=== PATIENT | female | born 1955 | race Two or more races ===

== ENCOUNTER 2020-10-21 00:47 | Emergency (ER) | payer MEDICARE, MEDICAID ==
[~2020-10-21] VITALS: Ht 165.1 cm; Wt 74.1 kg
[2020-10-21 00:50] VITALS: BP 111/79
[2020-10-21] MEDS ORDERED: DIAZEPAM 5 MG TABLET ONE ×2 (01:21→02:25)
[2020-10-21 01:25] LABS: BASOPHILS % (AUTO) 1 % (0-1); EOSINOPHILS % (AUTO) 3 % (1-7); LYMPHOCYTES % (AUTO) 37 % (22-44); MEAN CORPUSCULAR HEMOGLOBIN 32.8 pg (27.0-34.8); MEAN CORPUSCULAR HGB CONC 34.2 g/dL (32.4-35.8); MEAN PLATELET VOLUME 9.1 fL (7.4-10.4); MONOCYTES % (AUTO) 8 % (2-9); NEUTROPHILS % (AUTO) 51 % (42-75); PLATELET COUNT 285 x10^3/uL (130-400); RED BLOOD COUNT 3.88 x10^6/uL (3.82-5.3); RED CELL DISTRIBUTION WIDTH 13.1 % (9.6-15.2)
[2020-10-21 01:28] LABS: MD NO
[2020-10-21] MEDS ORDERED: DIAZEPAM 5 MG TABLET PO ONE ×2 (01:30→02:30)
[2020-10-21 01:31] LABS: ALBUMIN 3.8 g/dL (3.4-5.0); ANION GAP 8 mmol/L (5-15); CHLORIDE 111 mmol/L (98-107)
[2020-10-21 01:35] LABS: TROPONIN I < 0.015 ng/mL (0.000-0.045)
--- NOTE | 2020-10-21 01:38 | NUR ---
pt resting in bed with family at pt side, pt has unlabored equal breaths. pt a/o x4. pt medicated per nov. pt on monitor with vss. pt has no current wants or needs at this time.
== END 2020-10-21 02:42 | disposition home or self-care (01) ==
LOC: ED 01:08
DX: F41.1 Generalized anxiety disorder (principal); R06.4 Hyperventilation; F17.210 Nicotine dependence, cigarettes, uncomplicated; R00.0 Tachycardia, unspecified; R07.89 Other chest pain; R10.9 Unspecified abdominal pain; F17.200 Nicotine dependence, unspecified, uncomplicated
CPT/HCPCS: 36415; 71045; 80048; 82040; 84484; 85025; 85379; 93005; 99285; 99406